=== PATIENT | male | born 1955 | race Caucasian/White ===

== ENCOUNTER 2018-11-08 15:37 | Emergency (ER) | payer OTHER, MEDICAID ==
[~2018-11-08] VITALS: Ht 180.3 cm; Wt 80.3 kg
[~2018-11-08 15:37] MED LIST: BUTRANS1 EAC1 TRANSDERM; FELDENE20 MG PO; LANSOPRAZOL-AM1 EACH PO; PLAVIX 75 MG TA75 M1 PO; ZOCOR20 MG PO
[2018-11-08] MEDS ORDERED: ACETAMINOPHEN-1 EAC1 PO (15:52)
[2018-11-08] MEDS ORDERED: CYMBALTA60 MG PO (15:52)
[2018-11-08] MEDS ORDERED: ATIVAN0.5 MG PO (15:53)
[2018-11-08] MEDS ORDERED: SYNTHROID137 MC1 PO (15:53)
[2018-11-08] MEDS ORDERED: AMLODIPINE BESY10 MG PO (15:53)
[2018-11-08] MEDS ORDERED: ASPIRIN325 PO (15:53)
[2018-11-08] MEDS ORDERED: NEURONTIN600 MG PO (15:54)
[2018-11-08] MEDS ORDERED: ZANTAC 150MG T150 MG PO (15:54)
[2018-11-08] MEDS ORDERED: TRAZODONE HCL50 MG PO (15:54)
[2018-11-08] MEDS ORDERED: PROTONIX40 M1 PO (15:54)
[2018-11-08] MEDS ORDERED: SYMBICORT160 MCG/4. INH (15:55)
[2018-11-08] MEDS ORDERED: VENTOLIN HFA 1818 GM INH (15:56)
[2018-11-08] MEDS ORDERED: SPIRIVA INH (15:56)
[2018-11-08] MEDS ORDERED: ZANAFLEX4 MG PO (15:57)
[2018-11-08 16:20] LABS: ABSOLUTE BASOPHILS 0.1 thou/uL (0.0-0.2); ABSOLUTE EOSINOPHILS 0.1 thou/uL (0.0-0.7); ABSOLUTE LYMPHOCYTES 1.4 thou/uL (0.8-5.3); ABSOLUTE MONOCYTES 0.6 thou/uL (0.0-1.2); ABSOLUTE NEUTROPHILS 5.9 thou/uL (1.6-8.1); BASOPHILS 0.9 %; EOSINOPHILS 1.8 %; HEMATOCRIT 38.7 % (42.0-52.0); HEMOGLOBIN 13.2 gm/dL (14.0-18.0); LYMPHOCYTES 17.5 %; MCH 30.7 pg (26.0-34.0); MCHC 34.2 g/dL (28.0-37.0); MCV 89.8 fL (80.0-100.0); MONOCYTES 7.5 %; MPV 6.9 fl. (7.2-11.1); NUCLEATED RBCS 0 /100WBC; PLATELET COUNT* 306 thou/uL (150-400); POLYS 72.3 %; RBC 4.31 mil/uL (4.50-6.00); RDW-CV 14.6 % (10.5-14.5); WBC 8.1 thou/uL (4.0-11.0)
[2018-11-08 16:35] LABS: ALBUMIN 3.7 g/dL (3.4-5.0); ALKALINE PHOSPHATASE 115 U/L (46-116); ANION GAP 9 mmol/L (7-16); BUN 16 mg/dL (7-18); CALCIUM 9.1 mg/dL (8.5-10.1); CHLORIDE 104 mmol/L (98-107); CO2 30 mmol/L (21-32); CREATININE 0.9 mg/dL (0.6-1.3); GLUCOSE 94 mg/dL (70-99); POTASSIUM 3.8 mmol/L (3.5-5.1); SGOT 22 U/L (15-37); SGPT 18 U/L (30-65); SODIUM 143 mmol/L (136-145); TOTAL BILIRUBIN 0.3 mg/dL (<0.1-1.0); TOTAL PROTEIN 7.3 g/dL (6.4-8.2); TROPONIN-I LEVEL <0.06 ng/mL (<0.06)
[2018-11-08 17:20] LABS: URINE BILIRUBIN NEGATIVE (Negative); URINE BLOOD NEGATIVE (Negative); URINE CLARITY CLEAR; URINE COLOR YELLOW; URINE GLUCOSE-RANDOM NEGATIVE (Negative); URINE KETONES NEGATIVE (Negative); URINE LEUKOCYTES-REFLEX TRACE (Negative); URINE NITRITE-REFLEX NEGATIVE (Negative); URINE PROTEIN NEGATIVE (Negative); URINE UROBILINOGEN 0.2 E.U./dl (0.2-1.0)
[2018-11-08] MEDS ORDERED: KEFLEX500 M1 PO (17:29)
[2018-11-08 17:31] LABS: MUCUS None Seen strn/LPF (None Seen); SQUAMOUS 0-3 Few /LPF (0-3)
[2018-11-08 17:32] LABS: BACTERIA-REFLEX 1-9 Few /HPF (None Seen); CASTS None Seen /LPF (None Seen); CRYSTALS None Seen /LPF (None Seen); URINE RBC None Seen /HPF (0-2); URINE WBC-REFLEX 0-5 Rare /HPF (0-5)
[2018-11-08 17:42] VITALS: BP 138/79
--- NOTE | 2018-11-09 09:10 | EKG ---
[place] [address] ELECTROCARDIOGRAM REPORT Name: MALISSA BROWN Room: [facility]#: [id number] Admission: 11/08/18 Attend Phys: Discharge: 11/08/18 Date of : 51 Report #: [id number] THIS REPORT FOR: //name// [facility] ED Test Date: 2018-11-08 Test Time: 15:45:34 Pat Name: MALISSA BROWN Department: Room: Gender: M Basin Operator: Alida DOMINGUEZ : 1955 Requested By: Toño Deras Order Number: [id number] MD: Alvarado Boo Measurements Intervals [place] Rate: 83 P: 26 AK: 122 QRS: -3 QRSD: 87 T: 20 QT: 356 QTc: 419 Interpretive Statements Sinus rhythm Baseline wander in lead(s) I,III,aVL No previous ECG available for comparison Electronically Signed On 11-09-2018 9:10:38 CDT by Alvarado Boo [email or web address] <ELECTRONICALLY SIGNED> By: Alvarado Boo MD, [facility] 11/09/18 0910 1545 1545 Alvarado Boo MD, FACC /EPI
== END 2018-11-08 17:43 | disposition home or self-care (01) ==
LOC: M.ERS 15:37
PROVIDERS: Emergency Medicine Emergency Medical Services
DX: N39.0 Urinary tract infection, site not specified (principal); H53.8 Other visual disturbances; E78.00 Pure hypercholesterolemia, unspecified; M47.896 Other spondylosis, lumbar region